=== PATIENT | male | born 1960 | race Caucasian/White ===

== ENCOUNTER 2017-02-14 00:09 | Emergency (ER) | payer OTHER ==
[~2017-02-14] VITALS: Ht 188 cm; Wt 95.3 kg
[2017-02-14 00:14] VITALS: BP_SYST 153
[2017-02-14 00:27] VITALS: BP_SYST 153
== END 2017-02-14 00:27 ==
LOC: SED 00:09
DX: Z02.83 Encounter for blood-alcohol and blood-drug test (principal); V49.9XXA Car occupant (driver) (passenger) injured in unspecified traffic accident, initial encounter; Y93.89 Activity, other specified; Y99.8 Other external cause status; Y92.89 Other specified places as the place of occurrence of the external cause
CPT/HCPCS: 99283

== ENCOUNTER 2021-09-17 09:20 | Emergency (ER) | payer BC, SELFPAY ==
[~2021-09-17] VITALS: Ht 182.9 cm; Wt 94.3 kg
[2021-09-17 09:20] VITALS: BP_SYST 133
[2021-09-17] MEDS ORDERED: ZIT250 PO (10:22)
== END 2021-09-17 10:30 | disposition home or self-care (01) ==
LOC: SED 09:20
DX: U07.1 COVID-19 (principal)
CPT/HCPCS: 99283; C9803; U0003